=== PATIENT | male | born 2000 | race Caucasian/White ===

== ENCOUNTER 2018-07-15 11:01 | Emergency (ER) | payer MEDICAID ==
[~2018-07-15] VITALS: Ht 162.6 cm; Wt 64.4 kg
[2018-07-15 11:05] VITALS: BP_SYST 92
[2018-07-15] MEDS ORDERED: AMOXICILLIN/CLAVULANATE POTASSIUM 875 MG TABLET PO ONE (12:00)
[2018-07-15] MEDS ORDERED: HYDROcodone/ACETAMIN 5-325 MG TAB (NORCO/ VICODIN) PO ONE (12:00)
[2018-07-15] MEDS ORDERED: IBUPROFEN 600 MG TABLET PO ONE (12:00)
[2018-07-15 12:43] VITALS: BP_SYST 112
== END 2018-07-15 12:43 | disposition home or self-care (01) ==
LOC: SED 11:01
DX: L05.91 Pilonidal cyst without abscess (principal); R03.0 Elevated blood-pressure reading, without diagnosis of hypertension
CPT/HCPCS: 99284

== ENCOUNTER 2018-07-21 18:32 | Emergency (ER) | payer MEDICAID ==
[~2018-07-21] VITALS: Ht 162.6 cm; Wt 64.4 kg
[2018-07-21 18:38] VITALS: BP_SYST 106
--- NOTE | 2018-07-21 18:45 | NUR ---
Patient to ER bed 08 to gown for evaluation. Side rails up.
--- NOTE | 2018-07-21 18:45 | NUR ---
Pt brought by mother, A&Ox4, pt presents to ER with abscess on upper buttocks for one week, skin pink and warm, cap refill <3, VS WNL, afebrile.
--- NOTE | 2018-07-21 18:50 | NUR ---
Dr Garay at bedside examining patient
--- NOTE | 2018-07-21 18:55 | NUR ---
I&D Procedure done by Dr Jarrod carmona using sterile technique. Lidocaine 1% used. Wound packed with Adaptic, 4x4 and fernandez to wound. amt of bleeding noted. Wound care discussed with/ patient. Pt tolerated procedure well. Addendum: 07/21/18 at 1907 by [email or web address] Idoform 1/4 inch packing placed by Dr Garay.
--- NOTE | 2018-07-21 18:57 | NUR ---
Patient tolerated dressing well. Applied non-adhereing gauze and covered with ABD dressing, secured with paper tape.
[2018-07-21] MEDS ORDERED: LIDOCAINE 1%, 20 ML MDV 20 ML ONE (19:02)
[2018-07-21] MEDS ORDERED: LIDOCAINE 1% 10 MG/ML, 20 ML MDV INJ ONE (19:15)
[2018-07-21 19:19] VITALS: BP_SYST 106
--- NOTE | 2018-07-21 19:19 | NUR ---
report given to
--- NOTE | 2018-07-21 19:19 | NUR ---
Patient given written and verbal discharge instructions and verbalizes understanding. ER MD Dr. Ruiz discussed with patient the results and treatment provided. Patient in stable condition. ID arm band removed. Rx of clindamycin given. Patient educated on pain management and to follow up with PMD within 2-3 days. Pain Scale 0/10. Opportunity for questions provided and answered. Medication side effect fact sheet provided.
== END 2018-07-21 19:19 | disposition home or self-care (01) ==
LOC: SED 18:32
DX: K61.1 Rectal abscess (principal); F98.8 Other specified behavioral and emotional disorders with onset usually occurring in childhood and adolescence
CPT/HCPCS: 46040; 99284; J2001

== ENCOUNTER 2018-07-24 09:31 | Emergency (ER) | payer MEDICAID ==
[~2018-07-24] VITALS: Ht 162.6 cm; Wt 64.4 kg
[2018-07-24 10:08] VITALS: BP_SYST 107
[2018-07-24 11:39] VITALS: BP_SYST 112
== END 2018-07-24 11:41 | disposition home or self-care (01) ==
LOC: SED 09:31
DX: Z48.01 Encounter for change or removal of surgical wound dressing (principal); F98.8 Other specified behavioral and emotional disorders with onset usually occurring in childhood and adolescence
CPT/HCPCS: 99282

== ENCOUNTER 2019-06-05 17:08 | Emergency (ER) | payer MEDICAID ==
[~2019-06-05] VITALS: Ht 162.6 cm; Wt 63.5 kg
[2019-06-05 17:17] VITALS: BP_SYST 118
--- NOTE | 2019-06-05 17:19 | NUR ---
Patient to ER bed 05 to gown for evaluation. Side rails up.
--- NOTE | 2019-06-05 17:22 | NUR ---
Patient is awake, alert, and oriented x4. Patient reports left testicular pain since Tuesday. Patient denies any trauma and is complaining of intermittent pain as high as 8, currently pain is at 1/10. He denies nausea and vomiting.
--- NOTE | 2019-06-05 17:30 | NUR ---
EUGENE Lord at bedside examining patient.
[2019-06-05 18:36] LABS: BILIRUBIN,URINE NEGATIVE (NEGATIVE); BLOOD, URINE NEGATIVE (NEGATIVE); CLARITY/URINE CLEAR (CLEAR); COLOR,URINE YELLOW (YELLOW); GLUCOSE,URINE NEGATIVE (NEGATIVE); KETONES,URINE NEGATIVE (NEGATIVE); LEUKOCYTE ESTERASE ,URINE NEGATIVE (NEGATIVE); NITRITE, URINE NEGATIVE (NEGATIVE); PH,URINE 7.5 (5.0-8.0); PROTEIN URINE NEGATIVE (NEGATIVE); UROBILINOGEN,URINE 0.2 (0.2-1.0)
[2019-06-05] MEDS ORDERED: AZITHROMYCIN 250 MG TABLET PO ONE (19:00)
[2019-06-05] MEDS ORDERED: cefTRIAXone 250 MG VIAL IM ONE (19:00)
[2019-06-05 19:12] VITALS: BP_SYST 118
--- NOTE | 2019-06-05 19:12 | NUR ---
Patient given written and verbal discharge instructions and verbalizes understanding. ER MD discussed with patient the results and treatment provided. Patient in stable condition. ID arm band removed. Rx of ibuprofen given. Patient educated on pain management and to follow up with PMD. Pain Scale 0/10. Opportunity for questions provided and answered. Medication side effect fact sheet provided.
[2019-06-08 00:06] LABS: CHLAMYDIA TRACHOMATIS NAA Negative (Negative); NEISSERIA GONORRHOEAE NAA Negative (Negative)
== END 2019-06-05 19:12 | disposition home or self-care (01) ==
LOC: SED 17:08
DX: N50.812 Left testicular pain (principal); Z11.3 Encounter for screening for infections with a predominantly sexual mode of transmission
CPT/HCPCS: 76870; 81003; 87491; 87591; 96372; 99284; J0696; Q0144